=== PATIENT | female | born 2000 | race Hispanic/Latino ===

== ENCOUNTER 2021-03-05 15:29 | Emergency (ER) | payer OTHER, SELFPAY ==
--- NOTE | ~2021-03-05 | CT_ITS ---
EXAMINATION: CT abdomen pelvis w con DATE: 03/05/2021 20:23 INDICATION: Left lower quadrant pain for 5 days TECHNIQUE: Computed tomography (CT) of the abdomen and pelvis was performed with 100 cc Omnipaque 350 intravenous contrast. The dose-length product was 391.07 mGy-cm. Automated exposure control and iter ative reconstruction technique were employed. COMPARISON: None. FINDINGS: Lung bases are unremarkable. Heart size normal. No significant vascular abnormality. No lym phadenopathy. No free air or free fluid. The liver, spleen, pancreas, adrenal glands and kidneys are unremarkable. Gallbladder is present. Non obstructive bowel gas pattern. Normal appendix. No acute osseous abnormality. Normal lumbar alignment . Bladder is unremarkable. No abnormal pelvic masses or fluid collections. IMPRESSION: 1. No acute abdominal abnormality. Reviewed, dictated and finalized at location A.
[2021-03-05 15:57] VITALS: BP 111/73; PULSE 113; RESP 18; TEMP 36.6; O2SAT 99
[2021-03-05 16:27] LABS: Basophils Absolute Auto 0.1 K/mm3 (0.0-0.1); Basophils Percent Auto 0.4 % (0.2-1.2); Eosinophils Absolute Auto 0.2 K/mm3 (0-0.3); Eosinophils Percent Auto 1.7 % (0-4.4); Hematocrit 42.7 % (37.0-47.0); Hemoglobin 13.9 g/dL (12.0-15.0); Immature Granulocyte Absolute 0.03 K/mm3 (0.00-0.031); Immature Granulocyte Percent A 0.2 % (0-0.5); Lymphocytes Absolute Auto 2.71 K/mm3 (0.9-3.2); Mean Corpuscular HGB Conc 32.6 g/dl (32-36); Mean Corpuscular Hemoglobin 29.1 pg (26-34); Mean Corpuscular Volume 89.3 fl (80-100); Monocytes Absolute Auto 0.9 K/mm3 (0.1-0.6); Monocytes Percent Auto 6.8 % (2.6-8.5); Neutrophils Absolute Auto 9.6 K/mm3 (1.3-6.7); Neutrophils Percent Auto 70.9 % (45.5-73.1); Platelet Count Result 444 k/mm3 (150-375); Red Blood Count 4.78 M/mm3 (4.2-5.4); Red Cell Distribution Width 13.1 % (11.5-14.5); White Blood Count 13.6 K/mm3 (4.5-10.0)
[2021-03-05 16:30] LABS: Add Urine Microscopic? YES; Appearance Urine Clear (Clear); Bilirubin Urine Negative (Negative); Blood Urine Negative (Negative); Color Urine Yellow (Yellow); Glucose Urine UA Negative (Negative); Ketones Urine Negative (Negative); Leukocyte Esterase Ur Negative LEU/UL (Negative); Mucus Urine Rare /lpf; Nitrate Urine Negative (Negative); Protein Urine 1+ mg/dL (Negative); Specific Grav Ur 1.025 (1.001-1.035); Squamous Epithelial Cell Urine Moderate /hpf (Few)
[2021-03-05 16:41] LABS: Alanine Aminotransferase 17 U/L (4-35); Albumin Level 4.5 g/dL (3.5-5.1); Alkaline Phosphatase 53 U/L (38-126); Anion Gap 7 mmol/L (8-16); Aspartate Amino Transferase 23 U/L (14-36); Bilirubin,Total 0.2 mg/dL (0.2-1.3); Blood Urea Nitrogen 9 mg/dL (7-17); Calcium 9.3 mg/dL (8.4-10.2); Carbon Dioxide 28 mmol/L (22-30); Chloride 104 mmol/L (98-107); Estimated CRCL calculation 108 ml/min; Estimated Glomerular Filt Rate > 60; Glucose 87 mg/dL (65-110); Lipase 68 U/L (23-300); Potassium 3.8 mmol/L (3.4-5.0); Sodium 139 mmol/L (137-145)
--- NOTE | 2021-03-05 19:10 | ED.GENADULT ---
HPI - General Adult General Chief complaint: Abdominal Pain Stated complaint: Abd Cramping Time Seen by Provider: 03/05/21 17:43 Source: patient and RN notes reviewed Mode of arrival: ambulatory Limitations: no limitations History of Present Illness HPI narrative: Patient is a 20-year-old female who presents with 6 days duration of left lower abdominal pain rating around to the back denies similar occurrence in the past or any vaginal bleeding or discharge or URI symptoms presents in no distress has not taken anything for symptoms Related Data Allergies Allergy/AdvReac Type Severity Reaction Status Date / Time No Known Allergies Allergy Verified 03/05/21 19:30 Review of Systems Review of Systems: All systems reviewed & are unremarkable except as noted in HPI and below PMFSH Social History Social History (Updated 03/05/21 @ 19:12 by Joce Cortes PA-C) Smoking status: Never smoker Exam Narrative: GENERAL: Well-appearing, well-nourished, and in no acute distress. HEAD: Normocephalic, atraumatic. EYES: PERRLA and EOMI. ENT: Nares clear, no rhinorrhea or epistaxis. Mucous membranes moist. CHEST: Clear to auscultation. No respiratory distress. No wheezes rales or rhonchi HEART: Regular rate and rhythm. No murmur heard. Normal peripheral pulses. ABDOMEN: Soft, left lower quadrant tenderness to palpation no rebound or guarding, nondistended. EXTREMITIES: Normal range of motion. No edema. SKIN: Warm, dry, no rash. NEURO: No focal deficits. Alert and oriented x3. PSYCH: Normal mood and affect. Course Course Emergency Course: Patient evaluated for abdominal pain left-sided reoperating to the back no obvious etiology for symptoms she will be given outpatient follow-up provided with reasons to return she is afebrile nontoxic-appearing nondistressed Vital Signs Vital signs: Vital Signs Temperature 97.9 F 03/05/21 15:57 Pulse Rate 113 H 03/05/21 15:57 Respiratory Rate 18 03/05/21 15:57 Blood Pressure 111/73 03/05/21 15:57 Pulse Oximetry 99 03/05/21 15:57 Temperature 97.9 F 03/05/21 15:57 Pulse Rate 86 03/05/21 19:31 Respiratory Rate 16 03/05/21 19:31 Blood Pressure 117/81 03/05/21 19:31 Pulse Oximetry 100 03/05/21 19:31 Medical Decision Making MDM Narrative Medical decision making narrative: Patient with abdominal pain of unknown etiology will be discharged with outpatient follow-up felt appropriate for outpatient reevaluation given reasons to return could to be ovarian cyst or passed kidney stone as possible etiologies Vital Signs Vital Signs: Vital Signs Temperature 97.9 F 03/05/21 15:57 Pulse Rate 113 H 03/05/21 15:57 Respiratory Rate 18 03/05/21 15:57 Blood Pressure 111/73 03/05/21 15:57 Pulse Oximetry 99 03/05/21 15:57 Temperature 97.9 F 03/05/21 15:57 Pulse Rate 86 03/05/21 19:31 Respiratory Rate 16 03/05/21 19:31 Blood Pressure 117/81 03/05/21 19:31 Pulse Oximetry 100 03/05/21 19:31 Lab Data Result diagrams: 03/05/21 16:06 03/05/21 16:06 Labs: Lab Results 03/05/21 03/05/21 03/05/21 Range/Units 16:06 16:06 16:11 WBC 13.6 H (4.5-10.0) K/mm3 RBC 4.78 (4.2-5.4) M/mm3 Hgb 13.9 (12.0-15.0) g/dL Hct 42.7 (37.0-47.0) % MCV 89.3 (80-100) fl MCH 29.1 (26-34) pg MCHC 32.6 (32-36) g/dl RDW 13.1 (11.5-14.5) % Plt Count 444 H (150-375) k/mm3 MPV 10.0 (7.4-10.4) fl Immature Gran % (Auto) 0.2 (0-0.5) % Neut % (Auto) 70.9 (45.5-73.1) % Lymph % (Auto) 20.0 (18.3-44.2) % Kendall % (Auto) 6.8 (2.6-8.5) % Eos % (Auto) 1.7 (0-4.4) % Baso % (Auto) 0.4 (0.2-1.2) % Lymph # (Auto) 2.71 (0.9-3.2) K/mm3 Kendall # (Auto) 0.9 H (0.1-0.6) K/mm3 Eos # (Auto) 0.2 (0-0.3) K/mm3 Baso # (Auto) 0.1 (0.0-0.1) K/mm3 Abs Immat Gran (auto) 0.03 (0.00-0.031) K/mm3 Absolute Neuts (auto) 9.6 H (1.3-6.7) K/mm3 Absolute Nucle
[2021-03-05] MEDS: KETOROLAC 30 MG/ML VIAL (*BKC) IV PUSH (19:30)
[2021-03-05 19:31] VITALS: BP 117/81; PULSE 86; RESP 16; O2SAT 100
[2021-03-05] MEDS: LACTATED RINGERS 1,000 ML 999 ML IV CONT (19:31)
[2021-03-05 20:59] VITALS: BP 122/88; PULSE 78; RESP 16; O2SAT 100
== END 2021-03-05 20:43 | disposition home or self-care (01) ==
PROVIDERS: Emergency Medicine; Emergency Provider Family Medicine
DX: R10.32 Left lower quadrant pain (principal)
CPT/HCPCS: 36415; 74177; 80053; 81001; 81025; 83690; 85025; 96361; 96374; 99284; J1885; J7120; Q9967

== ENCOUNTER 2021-08-14 18:18 | Emergency (ER) | payer OTHER, SELFPAY ==
--- NOTE | ~2021-08-14 | US_ITS ---
EXAMINATION: US OB <=14 wk fetus w TV EXAM DATE: 08/14/2021 21:22 INDICATION: r/o ectopic, vag bleed, pelvic pain. 1st trimester. TECHNIQUE: Pelvic obstetrical transabdominal and transvaginal sonogram was performed by a technologjacquelyn moreland. There are multiple grayscale and Doppler images available for interpretation. There are no elijah ier studies of this gestation for comparison. FINDINGS: Uterus measures 9.4 x 6.9 x 5.7 cm. There is intrauterine gestation sac with infective luis meter of 1.4 cm which corresponds to estimated gestational age 6 weeks 2 days. No definite pole identified, cannot confirm viability at this time. No subchorionic hemorrhage. The ovaries are morph ologically normal, no extrauterine identified. IMPRESSION: 1. Small intrauterine gestation sac without pole identified. Cannot confirm viability. Consider follow-up ultrasound in 1-2 weeks or as indicated clinically. 2. No extrauterine identified. Reviewed, dictated and finalized at location [facility] IMPRESSION: 1. Small intrauterine gestation sac without pole identified. Cannot confi rm viability. Consider follow-up ultrasound in 1-2 weeks or as indicated clinic ally. 2. No extrauterine identified.
[2021-08-14 18:21] VITALS: BP 126/75; PULSE 116; RESP 18; TEMP 36.7; O2SAT 100
[2021-08-14 18:45] VITALS: BP 112/67; PULSE 95
[2021-08-14 18:46] VITALS: BP 107/73; PULSE 94
[2021-08-14 18:48] VITALS: BP 117/71; PULSE 108
--- NOTE | 2021-08-14 19:10 | ED.PREGNANCY ---
HPI - General Chief complaint: Vaginal Bleeding <Lizzie Carrera PA-C - Last Filed: 08/14/21 21:49> Stated complaint: vaginal bleeding <Lizzie Carrera PA-C - Last Filed: 08/14/21 21:49> Time Seen by Provider: 08/14/21 18:37 <Lizzie Carrera PA-C - Last Filed: 08/14/21 21:49> Source: patient <Lizzie Carrera PA-C - Last Filed: 08/14/21 21:49> Mode of arrival: ambulatory <Lizzie Carrera PA-C - Last Filed: 08/14/21 21:49> Limitations: no limitations <Lizzie Carrera PA-C - Last Filed: 08/14/21 21:49> History of Present Illness HPI Narrative: This is a 21-year-old G1, P0, about 7 weeks that presents to the emergency department for vaginal bleeding. Reports she noted some light bleeding today with pelvic cramping. She has not had an US yet or seen her [employer]. She sees Dr. Huitron. Denies fever, or dysuria. <Lizzie Carrera PA-C - Last Filed: 08/14/21 21:49> Related Data Allergies/Adverse reactions: Allergies Allergy/AdvReac Type Severity Reaction Status Date / Time No Known Allergies Allergy Verified 03/05/21 19:30 <Lizzie Carrera PA-C - Last Filed: 08/14/21 21:49> Review of Systems Review of Systems: CONSTITUTIONAL: Denies fever GASTROINTESTINAL: Reports pelvic cramping GENITOURINARY: Denies dysuria <Lizzie Carrera PA-C - Last Filed: 08/14/21 21:49> All systems reviewed & are unremarkable except as noted in HPI and below <Lizzie Carrera PA-C - Last Filed: 08/14/21 21:49> [facility] Past Medical History Medical History: Medical History (Updated 08/14/21 @ 21:47 by Lizzie Carrera PA-C) No active medical problems <Lizzie Carrera PA-C - Last Filed: 08/14/21 21:49> Social History Social History: Social History (Updated 03/05/21 @ 19:12 by Joce Cortes PA-C) Smoking status: Never smoker <Lizzie Carrera PA-C - Last Filed: 08/14/21 21:49> Exam Narrative: GENERAL: Well-appearing, well-nourished, and in no acute distress. HEAD: Normocephalic, atraumatic. EYES: EOMI. CHEST: Clear to auscultation. No respiratory distress. No wheezes rales or rhonchi HEART: Regular rate and rhythm. No murmur heard. Normal peripheral pulses. ABDOMEN: Soft, nontender, nondistended, normal active bowel sounds. EXTREMITIES: Normal range of motion. No edema. SKIN: Warm, dry, no rash. NEURO: No focal deficits. Alert and oriented x3. PSYCH: Normal mood and affect PELVIC: Normal appearing cervix, closed. Small amount of pink discharge in vaginal vault <Lizzie Carrera PA-C - Last Filed: 08/14/21 21:49> Course RESORT KEEPER/PA Physician Supervision For this patient encounter, I reviewed the RESORT KEEPER or PA documentation, treatment plan, and medical decision making <Guillermo King MD - Last Filed: 08/14/21 22:06> Consultations Consultation #1: Spoke with Dr. Huitron about patient and work-up. Patient will be given order for repeat quantitative beta-hCG in 2 days. She is to follow-up in clinic for repeat ultrasound <Lizzie Carrera PA-C - Last Filed: 08/14/21 21:49> Date: 08/14/21 <Lizzie Carrera PA-C - Last Filed: 08/14/21 21:49> Time: 21:45 <Lizzie Carrera PA-C - Last Filed: 08/14/21 21:49> Vital Signs Vital signs: Vital Signs Temperature 98.1 F 08/14/21 18:21 Pulse Rate 116 H 08/14/21 18:21 Respiratory Rate 18 08/14/21 18:21 Blood Pressure 126/75 08/14/21 18:21 Pulse Oximetry 100 08/14/21 18:21 Temperature 98.1 F 08/14/21 18:21 Pulse Rate 108 H 08/14/21 18:48 Respiratory Rate 18 08/14/21 18:21 Blood Pressure 117/71 08/14/21 18:48 Pulse Oximetry 100 08/14/21 18:21 <Lizzie Carrera PA-C - Last Filed: 08/14/21 21:49> Vital Signs Temperature 98.1 F 08/14/21 18:21 Pulse Rate 116 H 08/14/21 18:21 Respiratory Rate 18 08/14/21 18:21 Blood Pressure 126/75 08/14/21 18:21 Pulse Oximetry 100 08/14/21 18:21 Temperature 98.1 F 08/14/21 18:21 Pulse Rate
[2021-08-14 19:38] LABS: Basophils Absolute Auto 0.1 K/mm3 (0.0-0.1); Basophils Percent Auto 0.5 % (0.2-1.2); Eosinophils Absolute Auto 0.2 K/mm3 (0-0.3); Eosinophils Percent Auto 1.6 % (0-4.4); Hematocrit 40.6 % (37.0-47.0); Hemoglobin 13.9 g/dL (12.0-15.0); Immature Granulocyte Absolute 0.06 K/mm3 (0.00-0.031); Immature Granulocyte Percent A 0.4 % (0-0.5); Lymphocytes Absolute Auto 2.93 K/mm3 (0.9-3.2); Lymphocytes Percent Auto 21.4 % (18.3-44.2); Mean Corpuscular HGB Conc 34.2 g/dl (32-36); Mean Corpuscular Hemoglobin 29.3 pg (26-34); Mean Corpuscular Volume 85.5 fl (80-100); Mean Platelet Volume 9.6 fl (7.4-10.4); Monocytes Percent Auto 7.6 % (2.6-8.5); Neutrophils Absolute Auto 9.4 K/mm3 (1.3-6.7); Neutrophils Percent Auto 68.5 % (45.5-73.1); Platelet Count Result 456 k/mm3 (150-375); Red Blood Count 4.75 M/mm3 (4.2-5.4); Red Cell Distribution Width 13.2 % (11.5-14.5); White Blood Count 13.7 K/mm3 (4.5-10.0)
== END 2021-08-14 21:59 | disposition home or self-care (01) ==
PROVIDERS: Physician Assistant; Emergency Provider Emergency Medicine
DX: O20.0 Threatened abortion (principal); Z3A.01 Less than 8 weeks gestation of pregnancy
CPT/HCPCS: 36415; 76801; 76817; 81025; 84702; 85025; 85461; 99284

== ENCOUNTER 2021-08-16 11:16 | Outpatient (CLI) | payer OTHER, SELFPAY | END 2021-08-16 11:17 | disposition home or self-care (01) | LOC: ANHLAB 11:18 | PROVIDERS: Visit Provider Physician Assistant | DX: O20.0 Threatened abortion (principal); Z3A.00 Weeks of gestation of pregnancy not specified | CPT/HCPCS: 36415; 84702 ==

== ENCOUNTER 2021-08-30 07:59 | Outpatient (CLI) | payer OTHER, SELFPAY ==
[2021-08-30 08:34] LABS: Basophils Absolute Auto 0.1 K/mm3 (0.0-0.1); Basophils Percent Auto 0.5 % (0.2-1.2); Eosinophils Absolute Auto 0.2 K/mm3 (0-0.3); Eosinophils Percent Auto 1.4 % (0-4.4); Hematocrit 40.8 % (37.0-47.0); Hemoglobin 13.5 g/dL (12.0-15.0); Immature Granulocyte Absolute 0.06 K/mm3 (0.00-0.031); Immature Granulocyte Percent A 0.4 % (0-0.5); Lymphocytes Absolute Auto 3.38 K/mm3 (0.9-3.2); Mean Corpuscular HGB Conc 33.1 g/dl (32-36); Mean Corpuscular Volume 87.7 fl (80-100); Monocytes Absolute Auto 0.9 K/mm3 (0.1-0.6); Monocytes Percent Auto 5.5 % (2.6-8.5); Neutrophils Absolute Auto 10.8 K/mm3 (1.3-6.7); Neutrophils Percent Auto 70.2 % (45.5-73.1); Platelet Count Result 504 k/mm3 (150-375); Red Blood Count 4.65 M/mm3 (4.2-5.4); Red Cell Distribution Width 13.4 % (11.5-14.5); White Blood Count 15.4 K/mm3 (4.5-10.0)
[2021-08-30 09:22] LABS: Hepatitis B Surface Antigen Negative (Negative); Rubella IgG Antibody 5.3 IU/ML
[2021-08-30 09:29] LABS: HIV 1/2 Ab P24 Ag Result Negative (Negative)
[2021-08-31 10:47] LABS: Rapid Plasma Reagin Non-Reactive (NonReactive)
== END 2021-08-30 08:00 | disposition home or self-care (01) ==
LOC: ANHLAB 08:01
PROVIDERS: Visit Provider Obstetrics & Gynecology
DX: N91.2 Amenorrhea, unspecified (principal)
CPT/HCPCS: 36415; 84702; 85025; 86592; 86703; 86762; 86787; 86850; 86900; 86901; 87086; 87340; G0432